=== PATIENT | female | born 1970 | race Caucasian/White ===

== ENCOUNTER → 2018-12-13 | Outpatient (REF) | payer OTHER ==
[2018-12-13 09:55] LABS: HEMATOCRIT 40.4 % (36.0-47.0); HEMOGLOBIN 13.3 g/dl (12.0-15.5); MEAN CORPUSCULAR HEMOGLOBIN 31.2 pg (27.0-33.0); MEAN CORPUSCULAR HGB CONC 32.9 g/dl (32.0-36.5); MEAN CORPUSCULAR VOLUME 94.8 fl (80.0-96.0); PLATELET COUNT, AUTOMATED 348 10^3/uL (150-450); RED BLOOD COUNT 4.26 10^6/uL (4.00-5.40); WHITE BLOOD COUNT 6.5 10^3/uL (4.0-10.0)
[2018-12-13 10:35] LABS: ALBUMIN 3.9 GM/DL (3.2-5.2); ALT/SGPT 18 U/L (12-78); BILIRUBIN,TOTAL 0.4 MG/DL (0.2-1.0); BLOOD UREA NITROGEN 14 MG/DL (7-18); CALCIUM LEVEL 9.2 MG/DL (8.5-10.1); CARBON DIOXIDE LEVEL 28 MEQ/L (21-32); CHLORIDE LEVEL 105 MEQ/L (98-107); CHOLESTEROL LEVEL 241 MG/DL (<200); CHOLESTEROL RISK RATIO 1.853 (<5); CREATININE FOR GFR 0.65 MG/DL (0.55-1.30); FREE T4 1.01 NG/DL (0.76-1.46); GLOMERULAR FILTRATION RATE > 60.0 (>58); GLUCOSE, FASTING 94 MG/DL (70-100); HDL CHOLESTEROL 130 MG/DL (>40); LDL CHOLESTEROL 102 MG/DL (<100); NON-HDL-C 111 MG/DL; POTASSIUM SERUM 4.4 MEQ/L (3.5-5.1); SODIUM LEVEL 139 MEQ/L (136-145); TOTAL PROTEIN 7.3 GM/DL (6.4-8.2); TRIGLYCERIDES LEVEL 46 MG/DL (<150)
[2018-12-13 10:45] LABS: TOTAL 25(OH) VITAMIN D 37.8 NG/ML (30.0-100.0)
== END ==
LOC: M SFHCPLAZ 08:01
PROVIDERS: ATTEND Nurse Practitioner Family
DX: Z00.00 Encounter for general adult medical examination without abnormal findings (principal); F32.9 Major depressive disorder, single episode, unspecified; E89.0 Postprocedural hypothyroidism; Z13.220 Encounter for screening for lipoid disorders

== ENCOUNTER → 2019-02-04 | Outpatient (CLI) | payer OTHER ==
[~2019-02-04] MED LIST: ESCI20TA PO; LEVO112T2 PO; NAPR-885 PO
--- NOTE | 2019-02-05 04:27 | REP ---
Clinical: Right ankle trauma. Technique: AP, lateral views of the right tibia / fibula. Findings: There is evidence for an oblique nondisplaced fracture of the distal fibular metadiaphysis. Mild/early moderate arthritic changes at the knee and ankle joint are appreciated along with evidence to suggest old healed fracture of the proximal fibular metadiaphysis. Impression: 1. Acute oblique fracture of the distal fibular metadiaphysis. 2. Evidence for old healed proximal fibular fracture and arthritic changes at the knee and ankle joint. Electronically Signed by Billy Bradshaw MD 02/05/2019 04:18 A
--- NOTE | 2019-02-05 04:32 | REP ---
Clinical: Trauma. Technique: AP, lateral, bilateral oblique views of the right ankle. Findings: There appears to be an acute/subacute oblique fracture of the distal fibular metadiaphysis with overlying soft tissue swelling. Moderate arthritic changes are also appreciated. Lateral view demonstrates small densities primarily in the posterior soft tissues at the level of the talus which may represent bony fragments or foreign body material. Moderate calcaneal heal spur noted. Impression: 1. Oblique fracture of the distal fibular metadiaphysis with overlying soft tissue swelling. 2. Possible small fracture fragments versus foreign body material best identified on lateral radiograph requires correlation. 3. Arthritic degenerative changes. Electronically Signed by Billy Bradshaw MD 02/05/2019 04:23 A
== END ==
LOC: M RAD 10:41
PROVIDERS: ATTEND Nurse Practitioner Family
DX: S82.431A Displaced oblique fracture of shaft of right fibula, initial encounter for closed fracture (principal); Y93.9 Activity, unspecified; Y99.9 Unspecified external cause status; Y92.9 Unspecified place or not applicable; X58.XXXA Exposure to other specified factors, initial encounter

== ENCOUNTER 2019-02-11 14:50 | Day surgery (SDC) | payer OTHER ==
[~2019-02-11] VITALS: Ht 165.1 cm; Wt 71.1 kg
[~2019-02-11 14:50] MED LIST changes: +LIDOCAINE 2% INJ 100 MG/5 ML SDV (FOR ANES.) As Ordered ONE; +LR 1,000 ML IV ONE; +MIDAZOLAM INJ 2 MG/2 ML VIAL (J2250) As Ordered ONE; +ONDANSETRON 4MG/2ML VIAL (J2405) As Ordered ONE; +PROPOFOL 200 MG/20 ML VIAL As Ordered ONE; +ROCURONIUM BROMIDE 50 MG/5 ML VIAL As Ordered ONE; +dexameTHASONE 4 MG/ML 1ML VIAL (J1100) As Ordered ONE; +fentaNYL 100 MCG/2 ML INJECTION (J3010) As Ordered ONE; +fentaNYL 250 MCG/5 ML INJECTION (J3010) As Ordered ONE
[2019-02-11] MEDS ORDERED: ROPIvacaine 0.5% 30 ML INJECTION (J2795 PER 1MG) ONE ×2 (14:51)
[2019-02-11] MEDS ORDERED: LIDOCAINE 1% MDV 20ML VIAL ONE (14:51)
[2019-02-11] MEDS ORDERED: EPINEPHrine INJ 1 MG/ML 1ML AMP ONE ×2 (14:51)
[2019-02-11] MEDS ORDERED: dexameTHASONE 10 MG/1 ML VIAL PRES.FREE (J1100) ONE ×2 (14:51)
[2019-02-11 15:25] LABS: URINE PREG TEST NEGATIVE (NEGATIVE)
[2019-02-11] MEDS ORDERED: fentaNYL 100 MCG/2 ML INJECTION (J3010) As Ordered ONE (15:34)
[2019-02-11] MEDS ORDERED: MIDAZOLAM INJ 2 MG/2 ML VIAL (J2250) As Ordered ONE (15:34)
[2019-02-11] MEDS: fentaNYL 100 MCG/2 ML INJECTION (J3010) IV SCH ×2 (16:40→16:50)
[2019-02-11] MEDS ORDERED: MIDAZOLAM INJ 2 MG/2 ML VIAL (J2250) IV SCH (17:15)
[2019-02-11] MEDS ORDERED: ceFAZolin 1GM INJ (J0690 PER 500MG) As Ordered ONE (17:24)
[2019-02-11] MEDS ORDERED: SUGAMMADEX SODIUM 500 MG/5 ML VIAL (BRIDION) As Ordered ONE (19:03)
[2019-02-11] MEDS ORDERED: ONDANSETRON 4MG/2ML VIAL (J2405) As Ordered ONE (20:01)
[2019-02-11] MEDS: PERCOCET 5MG/325MG TAB PO PRN ×2 (20:01→20:41)
[2019-02-11] MEDS ORDERED: PERCOCET 5MG/325MG TAB As Ordered ONE (20:01)
[2019-02-11] MEDS ORDERED: fentaNYL 100 MCG/2 ML INJECTION (J3010) IV PRN (20:15)
[2019-02-11] MEDS ORDERED: PERCOCET 5MG/325MG TAB PO PRN ×2 (20:15)
[2019-02-11] MEDS ORDERED: ONDANSETRON 4MG/2ML VIAL (J2405) IV PRN (20:15)
[2019-02-11] MEDS ORDERED: LR 1,000 ML IV SCH ×2 (20:15)
[2019-02-11 20:45] VITALS: BP 121/71
--- NOTE | 2019-02-12 09:07 | REP ---
RIGHT ANKLE, SIX VIEWS: HISTORY: Fracture. COMPARISON: 02/04/2019. Six portable radiographs were obtained with the C-arm. The patient is status post ORIF of a fracture of the distal fibula. A fixation plate and screws are present. The joint space is normal in appearance. Fluoro time 1 minute 4 seconds. IMPRESSION: The patient is status post ORIF of a fracture of the distal fibula. There is anatomic alignment. Electronically Signed by Pan Mena MD 02/12/2019 09:17 A
--- NOTE | 2019-02-12 09:09 | REP ---
PORTABLE RIGHT ANKLE, THREE VIEWS: HISTORY: Fracture. COMPARISON: 02/11/2019. A plaster cast is present obscuring detail. The patient is status post ORIF of a fracture of the distal fibula. A fixation plate and screws are present. The joint space is normal in appearance. IMPRESSION: The patient is status post ORIF of a fracture of the distal fibula. There is anatomic alignment. Electronically Signed by Pan Mena MD 02/12/2019 09:17 A
--- NOTE | 2019-02-13 08:11 | RO ---
DATE OF PROCEDURE: 02/11/2019 PREOPERATIVE DIAGNOSIS: Right ankle fracture. POSTOPERATIVE DIAGNOSIS: Right ankle fracture. PROCEDURE: Open reduction internal fixation right distal fibula. SURGEON: Kaylin Dhillon MD [employer] PL[employer]: MJ Hodgson ANESTHESIA: General endotracheal with popliteal nerve block. ESTIMATED BLOOD LOSS: 10 mL. COMPLICATIONS: None. CONDITION: Stable to recovery. IMPLANTS: 7 hole 1/3 tubular plate. INDICATIONS: Ivette James is a 48-year-old female who sustained a mechanical fall resulting in a right distal fibula fracture as well. Patient's fracture was found to be unstable under stress testing in the office. She was offered cast management versus open reduction and internal fixation and elected to proceed with surgery. Risks and benefits of surgery were discussed with the patient in detail and include but are not limited to infection, damage to nerves and blood vessels, continued pain and stiffness, need for additional procedures, blood clots, malunion or nonunion. Informed consent was obtained in the office. PROCEDURE: Patient was met in the holding area where the right lower extremity was marked as the correct operative site. Soft tissue were amenable for surgery. She underwent a popliteal nerve block. She was taken to the operating room where she was placed in the supine position on the operating room table. Bony prominences were well padded. A well padded tourniquet was placed on the right upper thigh. A chlorhexidine scrub was also performed to the right lower extremity. It was prepped and draped in the normal sterile fashion. Antibiotics were given within 60 minutes prior to incision. An official time out was held where the correct patient, operative site and operative procedure were verified. Following this the leg was exsanguinated and tourniquet was inflated to 250 mm of mercury. An incision was made directly lateral over the fibula. Care was taken to protect the superficial peroneal nerve. The fracture once identified and found to be quite comminuted in four different pieces, a decision was made to proceed with a bridge plate. A 7 hole 1/3 tubular plate was selected. It was secured distally. Once the plate was secured the fracture was reduced and held in place with a reduction clamp. Plate was then secured proximally. The reduction was held nicely with the plate in place. At this point the ankle underwent an external rotation stress test and this was found to be stable. A decision was made to leave the Chaput type fracture of the distal tibia alone as after fixing the fibula the ankle mortise was stable. The wound was copiously irrigated. Soft tissues were closed using 3-0 Vicryl and 3-0 nylon. Sterile dressing was applied in addition to a well padded cast. Patient was extubated and transferred to the recovery room in stable condition. PLAN: The patient will be nonweightbearing in the right lower extremity in a cast. She will be on aspirin for DVT prophylaxis. I will see her back in 2 weeks for suture removal.
== END 2019-02-11 21:25 | disposition home or self-care (01) ==
LOC: M SDC 14:50
PROVIDERS: ATTEND Orthopaedic Surgery
DX: S82.401A Unspecified fracture of shaft of right fibula, initial encounter for closed fracture (principal); W19.XXXA Unspecified fall, initial encounter; Y92.89 Other specified places as the place of occurrence of the external cause; Y99.9 Unspecified external cause status; Y93.9 Activity, unspecified; E89.0 Postprocedural hypothyroidism; F41.9 Anxiety disorder, unspecified; F32.9 Major depressive disorder, single episode, unspecified; Z87.891 Personal history of nicotine dependence; Z79.899 Other long term (current) drug therapy
CPT/HCPCS: 27792; 64445; 73610; 84703; C1713; J0690; J1100; J2250; J2405; J2795; J3010

== ENCOUNTER → 2019-02-27 | Outpatient (REF) | payer OTHER ==
[~2019-02-27] MED LIST changes: -LIDOCAINE 2% INJ 100 MG/5 ML SDV (FOR ANES.) As Ordered ONE; -LR 1,000 ML IV ONE; -MIDAZOLAM INJ 2 MG/2 ML VIAL (J2250) As Ordered ONE; -ONDANSETRON 4MG/2ML VIAL (J2405) As Ordered ONE; -PROPOFOL 200 MG/20 ML VIAL As Ordered ONE; -ROCURONIUM BROMIDE 50 MG/5 ML VIAL As Ordered ONE; -dexameTHASONE 4 MG/ML 1ML VIAL (J1100) As Ordered ONE; -fentaNYL 100 MCG/2 ML INJECTION (J3010) As Ordered ONE; -fentaNYL 250 MCG/5 ML INJECTION (J3010) As Ordered ONE
== END ==
LOC: M SFHCPLAZ 08:43
PROVIDERS: ATTEND Nurse Practitioner Family
DX: F41.9 Anxiety disorder, unspecified (principal)

== ENCOUNTER 2019-07-02 15:02 | Emergency (ER) | payer OTHER ==
[~2019-07-02] VITALS: Ht 162.6 cm; Wt 71.4 kg
[2019-07-02] MEDS ORDERED: ASPI81CH33 PO (15:30)
[2019-07-02 16:04] VITALS: BP 118/84
== END 2019-07-02 16:48 | disposition left against medical advice (07) ==
LOC: M ED 15:02
DX: Z53.29 Procedure and treatment not carried out because of patient's decision for other reasons (principal)

== ENCOUNTER → 2019-07-07 | Outpatient (REF) | payer OTHER ==
[~2019-07-07] MED LIST changes: +ASPI81CH33 PO
== END ==
LOC: M SFHCPLAZ 07:56
PROVIDERS: ATTEND Nurse Practitioner Family
DX: F32.9 Major depressive disorder, single episode, unspecified (principal)

== ENCOUNTER → 2019-09-10 | Outpatient (REF) | payer OTHER ==
[2019-09-10 14:56] LABS: BLOOD UREA NITROGEN 11 MG/DL (7-18); CALCIUM LEVEL 9.7 MG/DL (8.5-10.1); CARBON DIOXIDE LEVEL 26 MEQ/L (21-32); CHLORIDE LEVEL 102 MEQ/L (98-107); CREATININE FOR GFR 0.72 MG/DL (0.55-1.30); FREE T4 1.08 NG/DL (0.76-1.46); GLOMERULAR FILTRATION RATE > 60.0 (>58); GLUCOSE, FASTING 74 MG/DL (70-100); POTASSIUM SERUM 4.3 MEQ/L (3.5-5.1); SODIUM LEVEL 137 MEQ/L (136-145)
== END ==
LOC: M SFHCPLAZ 10:36
PROVIDERS: ATTEND Nurse Practitioner Family
DX: E89.0 Postprocedural hypothyroidism (principal); R03.0 Elevated blood-pressure reading, without diagnosis of hypertension

== ENCOUNTER 2019-10-14 22:05 | Emergency (ER) | payer OTHER ==
[~2019-10-14] VITALS: Ht 162.6 cm; Wt 71.4 kg
[2019-10-15] MEDS ORDERED: IBUPROFEN 600 MG TAB PO ONE (00:15)
[2019-10-15 00:32] VITALS: BP 123/81
--- NOTE | 2019-10-15 08:11 | REP ---
Left shoulder series: Three views. History: Left shoulder pain. Findings: Three views of the left shoulder demonstrate normal alignment of the glenohumeral and acromioclavicular joints. Periarticular soft tissues are unremarkable. No fracture or subluxation is seen. Impression: No fracture or subluxation noted. Electronically Signed by Jayme Neal MD 10/15/2019 08:02 A
== END 2019-10-15 00:44 | disposition home or self-care (01) ==
LOC: M ED 22:05
DX: S46.912A Strain of unspecified muscle, fascia and tendon at shoulder and upper arm level, left arm, initial encounter (principal); X50.0XXA Overexertion from strenuous movement or load, initial encounter; Y99.0 Civilian activity done for income or pay; I10 Essential (primary) hypertension; E03.9 Hypothyroidism, unspecified; Z85.850 Personal history of malignant neoplasm of thyroid; F17.210 Nicotine dependence, cigarettes, uncomplicated; Z79.1 Long term (current) use of non-steroidal anti-inflammatories (NSAID); Z79.82 Long term (current) use of aspirin; Z79.899 Other long term (current) drug therapy

== ENCOUNTER → 2020-03-01 | Outpatient (REF) | payer OTHER | LOC: M SFHCPLAZ 10:02 | PROVIDERS: ATTEND Physician Assistant | DX: Z13.220 Encounter for screening for lipoid disorders (principal); F32.9 Major depressive disorder, single episode, unspecified; Z85.850 Personal history of malignant neoplasm of thyroid ==

== ENCOUNTER → 2021-03-01 | Outpatient (CLI) | payer OTHER ==
[~2021-03-01] MED LIST changes: -ESCI20TA PO; +ESCI20TA16 PO
--- NOTE | 2021-03-01 09:31 | REPPI ---
INDICATION: PAIN LEFT SHOULDER COMPARISON: None. TECHNIQUE: Internal rotation, external rotation, and Y view. FINDINGS: Mild cortical irregularity with very subtle spurring at the acromioclavicular joint. Glenohumeral joint appears intact and normal. The subacromial space is normal. No periarticular calcifications or loose bodies are identified. Surrounding soft tissues unremarkable. IMPRESSION: Mild degenerative changes at the acromioclavicular joint. <Electronically signed by Billy Bradshaw > 03/01/21 0900
== END ==
LOC: M PLAIMG 09:11
PROVIDERS: ATTEND Physician Assistant
DX: M25.512 Pain in left shoulder (principal)

== ENCOUNTER → 2021-03-15 | Outpatient (CLI) | payer OTHER ==
--- NOTE | 2021-03-15 13:22 | REPPI ---
INDICATION: WHEEZING,CHEST TIGHTNESS COMPARISON: None. TECHNIQUE: PA and lateral. FINDINGS: The mediastinum and cardiac silhouette are normal. The lung saleh are clear and without acute consolidation, effusion, or pneumothorax. The skeletal structures are intact and normal. IMPRESSION: No acute cardiopulmonary process. <Electronically signed by Billy Bradshaw > 03/15/21 [id number]
== END ==
LOC: M PLAIMG 12:42
PROVIDERS: ATTEND Physician Assistant
DX: R06.2 Wheezing (principal); R07.89 Other chest pain

== ENCOUNTER → 2022-09-18 | Outpatient (CLI) | payer OTHER | LOC: M RAD 08:49 | PROVIDERS: ATTEND Family Medicine Addiction Medicine | DX: M25.561 Pain in right knee (principal) ==

== ENCOUNTER → 2022-12-14 | Outpatient (REF) | payer OTHER, MEDICAID ==
[2022-12-14 16:44] LABS: FOLLICLE STIMULATING HORMONE 113.6 mIU/ML; LUTEINIZING HORMONE 42.4 mIU/ML
[2022-12-14 16:55] LABS: URIC ACID 4.2 MG/DL (3.1-7.8)
== END ==
LOC: M LAB REF 16:12
PROVIDERS: ATTEND Family Medicine Addiction Medicine
DX: N95.1 Menopausal and female climacteric states (principal); M25.561 Pain in right knee

== ENCOUNTER 2023-02-10 14:15 | Emergency (ER) | payer OTHER ==
[~2023-02-10] VITALS: Ht 162.6 cm; Wt 70.5 kg
[2023-02-10 14:22] VITALS: BP 178/80
[2023-02-10] MEDS ORDERED: CARV3.12 (14:31)
[2023-02-10] MEDS ORDERED: PARO5TAB (14:31)
== END 2023-02-10 15:24 | disposition left against medical advice (07) ==
LOC: M ED 14:15 → EDBD 14:15 → M ED 15:24
DX: Z53.21 Procedure and treatment not carried out due to patient leaving prior to being seen by health care provider (principal)

== ENCOUNTER → 2023-08-02 | Outpatient (REF) | payer OTHER, MEDICAID ==
[~2023-08-02] MED LIST changes: +CARV3.12; +PARO5TAB
== END ==
LOC: M LAB REF 11:52
PROVIDERS: ATTEND Nurse Practitioner Family
DX: Z12.4 Encounter for screening for malignant neoplasm of cervix (principal); R87.619 Unspecified abnormal cytological findings in specimens from cervix uteri

== ENCOUNTER 2023-09-24 08:45 | Outpatient (RCR) | payer OTHER ==
[~2023-09-24 08:45] MED LIST changes: +BUSP10TA; +DICL100G10; +PARO20TA3
== END 2023-09-25 ==
LOC: M PT 08:45
PROVIDERS: ATTEND Orthopaedic Surgery
DX: M25.561 Pain in right knee (principal)

== ENCOUNTER 2023-10-01 08:27 | Outpatient (RCR) | payer OTHER | END 2023-10-25 | LOC: M PT 08:27 | PROVIDERS: ATTEND Orthopaedic Surgery | DX: M25.561 Pain in right knee (principal) ==

== ENCOUNTER → 2024-01-22 | Outpatient (CLI) | payer OTHER | LOC: M PLAIMG 10:48 | PROVIDERS: ATTEND Orthopaedic Surgery | DX: M17.11 Unilateral primary osteoarthritis, right knee (principal) ==

== ENCOUNTER → 2024-02-07 | Outpatient (REF) | payer OTHER, MEDICAID ==
[2024-02-07 15:20] LABS: FOLLICLE STIMULATING HORMONE 131.1 mIU/ML; LUTEINIZING HORMONE 40.1 mIU/ML; THYROID STIMULATING HORMONE 0.831 uIU/ML (0.55-4.78)
[2024-02-07 15:21] LABS: ALBUMIN 4.3 G/DL (3.2-5.2); ALKALINE PHOSPHATASE 89 U/L (46-116); ALT/SGPT 88 U/L (7.0-40); AST/SGOT 111 U/L (<34); BILIRUBIN,TOTAL 0.4 MG/DL (0.3-1.2); BLOOD UREA NITROGEN 7 MG/DL (9-23); CALCIUM LEVEL 9.3 MG/DL (8.5-10.1); CARBON DIOXIDE LEVEL 25 MMOL/L (20-31); CHLORIDE LEVEL 104 MMOL/L (98-107); CREATININE FOR GFR 0.59 MG/DL (0.55-1.30); FREE T4 1.38 NG/DL (0.89-1.76); GLOMERULAR FILTRATION RATE > 60.0 (>51); GLUCOSE, FASTING 73 MG/DL (60-100); POTASSIUM SERUM 4.4 MMOL/L (3.5-5.1); SODIUM LEVEL 138 MMOL/L (136-145); TOTAL PROTEIN 7.7 G/DL (5.7-8.2)
== END ==
LOC: M LAB REF 12:18
PROVIDERS: ATTEND Nurse Practitioner Family
DX: F10.10 Alcohol abuse, uncomplicated (principal); N95.1 Menopausal and female climacteric states; E89.0 Postprocedural hypothyroidism

== ENCOUNTER → 2024-06-09 | Outpatient (REF) | LOC: M PLAIMG 11:24 | PROVIDERS: ATTEND Internal Medicine | DX: R52 Pain, unspecified (principal) ==

== ENCOUNTER → 2024-06-30 | Outpatient (REF) | LOC: M PLAIMG 10:57 | PROVIDERS: ATTEND Internal Medicine | DX: R52 Pain, unspecified (principal) ==

== ENCOUNTER 2024-09-22 16:58 | Emergency (ER) | payer OTHER, MEDICAID ==
[~2024-09-22] VITALS: Ht 162.6 cm; Wt 70.4 kg
[2024-09-22 19:46] VITALS: BP 156/56; TEMP 98; O2SAT 100
== END 2024-09-22 19:55 | disposition home or self-care (01) ==
LOC: M ED 16:58
DX: S42.255A Nondisplaced fracture of greater tuberosity of left humerus, initial encounter for closed fracture (principal); W19.XXXA Unspecified fall, initial encounter; F41.9 Anxiety disorder, unspecified; F32.A Depression, unspecified; C73 Malignant neoplasm of thyroid gland; I10 Essential (primary) hypertension; E03.9 Hypothyroidism, unspecified; F17.200 Nicotine dependence, unspecified, uncomplicated; Y92.009 Unspecified place in unspecified non-institutional (private) residence as the place of occurrence of the external cause; Y93.89 Activity, other specified; Y99.9 Unspecified external cause status; Z79.899 Other long term (current) drug therapy

== ENCOUNTER → 2024-10-20 | Outpatient (REF) | payer OTHER ==
[2024-10-20 12:21] LABS: BASO # 0.1 10^3/uL (0.0-0.2); EOS # 0.3 10^3/uL (0.0-0.5); EOS % 3.1 % (0.0-3.0); HEMATOCRIT 37.4 % (36.0-47.0); LYMPH # 1.9 10^3/uL (1.5-5.0); LYMPH % 22.8 % (24.0-44.0); MEAN CORPUSCULAR HEMOGLOBIN 33.1 pg (27.0-33.0); MEAN CORPUSCULAR HGB CONC 32.1 g/dl (32.0-36.5); MEAN CORPUSCULAR VOLUME 103.3 fl (80.0-96.0); MONO # 0.8 10^3/uL (0.0-0.8); MONO % 9.3 % (2.0-8.0); NEUTROPHILS # 5.3 10^3/uL (1.5-8.5); NEUTROPHILS % 63.3 % (36.0-66.0); PLATELET COUNT, AUTOMATED 361 10^3/uL (150-450); RED BLOOD COUNT 3.62 10^6/uL (4.00-5.40); WHITE BLOOD COUNT 8.4 10^3/uL (4.0-10.0)
[2024-10-20 12:25] LABS: ALBUMIN 3.7 G/DL (3.2-5.2); ALKALINE PHOSPHATASE 82 U/L (35-104); ALT/SGPT 27 U/L (7.0-40); AST/SGOT 29 U/L (<34); BILIRUBIN,TOTAL 0.2 MG/DL (0.3-1.2); BLOOD UREA NITROGEN 10 MG/DL (9-23); CALCIUM LEVEL 10.3 MG/DL (8.5-10.1); CARBON DIOXIDE LEVEL 28 MMOL/L (20-31); CHLORIDE LEVEL 104 MMOL/L (98-107); CHOLESTEROL LEVEL 266 MG/DL (<200); CHOLESTEROL RISK RATIO 1.92 (<5); CREATININE FOR GFR 0.65 MG/DL (0.55-1.30); GLOMERULAR FILTRATION RATE > 60.0 (>51); GLUCOSE, FASTING 80 MG/DL (60-100); LDL CHOLESTEROL 111.4 MG/DL (<100); SODIUM LEVEL 139 MMOL/L (136-145); TOTAL PROTEIN 7.4 G/DL (5.7-8.2); TRIGLYCERIDES LEVEL 83 MG/DL (<150)
== END ==
LOC: M LAB REF 11:40
PROVIDERS: ATTEND Family Medicine Addiction Medicine
DX: E78.00 Pure hypercholesterolemia, unspecified (principal)

== ENCOUNTER → 2024-10-29 | Outpatient (CLI) | payer OTHER | LOC: M SOG 07:51 | PROVIDERS: ATTEND Orthopaedic Surgery | DX: Z53.9 Procedure and treatment not carried out, unspecified reason (principal) ==

== ENCOUNTER → 2025-01-15 | Outpatient (REF) | LOC: M PLAIMG 10:41 | PROVIDERS: ATTEND Internal Medicine | DX: S42.252D Displaced fracture of greater tuberosity of left humerus, subsequent encounter for fracture with routine healing (principal); M19.012 Primary osteoarthritis, left shoulder; M75.32 Calcific tendinitis of left shoulder ==

== ENCOUNTER → 2025-04-08 | Outpatient (CLI) | payer OTHER | LOC: M SOG 06:53 | PROVIDERS: ATTEND Orthopaedic Surgery | DX: M25.561 Pain in right knee (principal) ==

== ENCOUNTER → 2025-07-22 | Outpatient (CLI) | payer OTHER | LOC: M SOG 06:50 | PROVIDERS: ATTEND Orthopaedic Surgery | DX: S42.255A Nondisplaced fracture of greater tuberosity of left humerus, initial encounter for closed fracture (principal); Z53.9 Procedure and treatment not carried out, unspecified reason ==

== ENCOUNTER → 2025-10-09 | Outpatient (CLI) | payer OTHER | LOC: M SOG 07:34 | PROVIDERS: ATTEND Orthopaedic Surgery | DX: M17.11 Unilateral primary osteoarthritis, right knee (principal); M25.561 Pain in right knee ==